=== PATIENT | male | born 1955 | race Two or more races ===

== ENCOUNTER 2023-12-08 14:10 | Emergency (ER) | payer OTHER ==
[~2023-12-08] VITALS: Ht 162.6 cm; Wt 74.8 kg
[2023-12-08 16:31] LABS: HEMATOCRIT 39.9 % (39.0-48.0); HEMOGLOBIN 13.6 g/dL (13-16.00); MEAN CELL VOLUME 92.1 fL (80.0-100.00); MEAN CORPUSCULAR HEMOGLOBIN 31.3 pg (27.00-32.0); PLATELET COUNT 178 K/uL (150-450); RED BLOOD COUNT 4.33 M/uL (4.00-6.00); RED CELL DISTRIBUTION WIDTH 14.5 % (11.5-14.5)
[2023-12-08 16:34] LABS: CALCIUM 9.4 mg/dL (8.5-10.1); CREATININE SERUM 1.03 mg/dL (0.70-1.30); GFR 71.39; POTASSIUM 3.82 mEq/L (3.5-5.1)
[2023-12-08] MEDS ORDERED: IBU600 MG PO (18:54)
== END 2023-12-08 19:28 | disposition home or self-care (01) ==
LOC: ER 14:10
PROVIDERS: General Practice
DX: R53.81 Other malaise (principal); M77.31 Calcaneal spur, right foot; E11.9 Type 2 diabetes mellitus without complications